=== PATIENT | female | born 1970 | race American Indian/Alaskan Native ===

== ENCOUNTER 2017-05-29 06:04 | Inpatient (IN) | payer OTHER ==
[2017-05-28 09:18] VITALS: BMI 27.4
[2017-05-29] MEDS ORDERED: Lactated Ringer's 1,000 ML IV ONE ×2 (07:00→08:48)
[2017-05-29] MEDS ORDERED: Phenylephrine 10 mg/ml Inj ONE (07:13)
[2017-05-29] MEDS ORDERED: Midazolam 2 MG/2 ML VIAL ONE (07:13)
[2017-05-29] MEDS ORDERED: Rocuronium 10 mg/ml (5 ml) ONE ×2 (07:13→10:07)
[2017-05-29] MEDS ORDERED: Propofol 10 mg/ml Inj (20 ML) ONE (07:13)
[2017-05-29] MEDS ORDERED: Succinylcholine 200 mg/10 ml Inj IV ONE (07:13)
[2017-05-29] MEDS ORDERED: ePHEDrine 50 mg/ml Inj ONE (07:13)
[2017-05-29] MEDS ORDERED: Bupivacaine 0.5% Inj(30mL) ONE (07:39)
[2017-05-29] MEDS ORDERED: Neostigmine Methylsulfate 2 MG/2 ML ML IV ONE (08:16)
[2017-05-29] MEDS ORDERED: Dexamethasone 4 mg/1 ml ONE (08:18)
[2017-05-29] MEDS ORDERED: Sodium Chloride 0.9% 1,000 ML IV ONE (09:41)
[2017-05-29] MEDS ORDERED: HYDROmorphone 0.5 mg/0.5 ml ISec IVP PRN (10:59)
[2017-05-29] MEDS ORDERED: Naloxone 0.4 mg/ml Inj (Adult) IVP PRN (10:59)
[2017-05-29] MEDS ORDERED: Oxycodone/Acetaminophen 5/325 mg Tab PO PRN (12:34)
[2017-05-29] MEDS: cefOXitin Sodium 1 GM in Sodium Chloride 0.9% 100 ML IVPB SCH (16:44)
[2017-05-29] MEDS: Lactated Ringer's 1,000 ML IV SCH (20:25)
[2017-05-29 21:19] VITALS: O2SAT 100
[2017-05-30] MEDS: cefOXitin Sodium 1 GM in Sodium Chloride 0.9% 100 ML IVPB SCH ×2 (00:43→08:35)
[2017-05-30] MEDS: Lactated Ringer's 1,000 ML IV SCH (05:30)
[2017-05-30 06:31] LABS: HEMATOCRIT 27.8 % (34.0-47.0); MEAN CELL VOLUME 90.7 fl (81.0-99.0); MEAN CORPUSCULAR HEMOGLOBIN 28.7 pg (27.0-31.0); MEAN CORPUSCULAR HGB CONC 31.7 g/dL (33.0-37.0); RED CELL DISTRIBUTION WIDTH 14.8 % (11.5-14.5); WHITE BLOOD COUNT 8.4 K/uL (4.8-10.8)
--- NOTE | 2017-05-30 08:30 | CP.SDSHP ---
Same Day Surgery [facility] & P - Allergies Allergies: Allergies ibuprofen Allergy (Intermediate, Verified 02/26/17 09:34) SWELLING Iodine and Iodide Containing Produc Allergy (Intermediate, Verified 02/26/17 09: 34) NAUSEA shellfish derived Allergy (Intermediate, Verified 02/26/17 09:34) SWELLING - Physical Exam Vital Signs: Vital Signs 05/30/17 05/30/17 05/30/17 01:00 05:00 05:56 Temperature 99.1 F 99 F Pulse Rate 87 69 Respiratory 22 22 20 Rate Blood Pressure 102/56 L 113/71 O2 Sat by Pulse 100 100 100 Oximetry Short Stay Discharge - Short Stay Discharge Admitting Diagnosis/Reason for Visit: FIBROID UTERUS S/P ROBOTICHYSTERECTOMY Referrals: Roopa Pacheco MD [Primary Care Provider] - Additional Instructions (Diet, Activity): Patient doing well pain well controlled tolerating diet Vital signs stable afebrile Abdomen soft nontender nondistended Incision clean dry and intact Extremities no Homans Postop day 1 Patient cleared for discharge Prescriptions for Percocet and Colace provided No heavy lifting, nothing per vagina Follow-up with PMD in 1 week
[2017-05-30 11:53] VITALS: BP 112/63; PULSE 75; RESP 18; TEMP 35
--- NOTE | 2017-05-30 19:53 | OP ---
PROCEDURE DATE: 05/29/2017 PREOPERATIVE DIAGNOSES: Symptomatic fibroid uterus, pelvic pressure, pain, and anemia. POSTOPERATIVE DIAGNOSES: Symptomatic fibroid uterus, pelvic pressure, pain, and anemia. OPERATIONS PERFORMED: Robotic-assisted hysterectomy, bilateral salpingectomy, and cystoscopy. SURGEON: Marlyn Linton MD TELECOMMUNICATIONS ENGINEER: Dr. Jaime Wakefield, he was helpful in taking care of the patient. He helped to create exposure, helpful in obtaining hemostasis, helpful in extraction of the specimen. Procedure would not have been possible without his assistance. ANESTHESIA: General. ANESTHESIA ADMINISTERED BY: Dr. Nguyen. ESTIMATED BLOOD LOSS: 100 mL. URINE OUTPUT: Approximately 300 mL of clear urine. IV FLUID INTAKE: The patient received approximately 1700 mL of D5LR intraoperatively. OPERATIVE FINDINGS: An 18-week size uterus, irregular contour, normal ovaries, tubes. CYSTOSCOPY FINDINGS: The dome of the bladder was noted to be intact. There was bilateral efflux of urine from the ureters. DESCRIPTION OF PROCEDURE: After informed consent was obtained, the patient was taken to the operating room, where she was given general anesthesia. A time-out was performed and the patient was then prepped and draped in usual sterile fashion in a lithotomy position. A weighted-speculum was then inserted into the vagina, cervix was visualized and grasped with a single-toothed tenaculum. Cervix was gently dilated and the Vcare uterine manipulator was inserted into the uterine cavity as a means to manipulate the uterus. A Ennis catheter was then inserted into the bladder to monitor the patient's urinary output. Attention was then turned to the abdomen approximately 8 cm above the umbilicus. Marcaine was infused and 8 mm incision was made and the Veress needle was introduced into the abdominal cavity, placement was confirmed with a fluid filled syringe. The abdomen was then insufflated to 15 mmHg. The Veress needle was removed and then an 8 mm trocar was introduced into the abdominal cavity, placement was confirmed with the laparoscope. The abdomen was surveyed with the findings noted above. Attention was then turned to approximately 20 cm right and lateral of the umbilicus. Marcaine was infused and 8 mm incision was made, and 8 mm port was introduced into abdominal cavity under direct visualization. A similar procedure was performed approximately 10 cm right and lateral to the umbilicus. Attention was then turned to the left side where approximately 20 cm left and lateral of the umbilicus and 8 mm Marcaine was infused and 8 mm incision was made and a robotic port was introduced under direct visualization, approximately 10 cm left and lateral to the umbilicus. Marcaine was infused and 5 mm incision was made and interior design assistant ports was introduced to the abdominal cavity under direct visualization. The patient was then placed in steep Trendelenburg, the table was lowered, and the robot was brought along the patient side and docked without complication. The instruments were used for the surgery were PK dissector, Low Suture Cut, scissor, and a ProGrasp. The instruments were then inserted into the abdomen. The robot was docked and proceeded to break scrub and headed to surgical console. Attention was then turned to the left round ligament, where a serially coagulated and then transected with the scissor. The Utero-ovarian ligament was identified, serially coagulated with the PK dissector and then transected with the scissor. Attention was then turned anteriorly where the vesicouterine peritoneum was undermined with the PK dissector and transected down to the level of the Vcare cup anteriorly. Attention was then turned to the posterior aspect of peritoneum was undermined with PK dissector and transected down to the level of the Vcare cup posteriorly. The uterine arteries were then skeletonized on the left side, they were serially coagulated with PK dissector and transected with the scissor. Attention was then turned to the right side of the uterus. The round ligament was identified, serially coagulated and transected with the scissor. Attention was then turned to the Utero-ovarian ligament with similar fashion was serially coagulated and transected with the scissor. The vesicouterine peritoneum was then undermined with the PK carried down to the level of the Vcare cup anteriorly. Vcare cup was then identified. The bladder was gently mobilized downward using both sharp and blunt dissection with scissor and hemostasis was obtained with the PK. Attention was then turned to the posterior aspect of the uterus, where the posterior peritoneum was undermined with the PK dissector down to the level of the Vcare cup posteriorly. The right uterine arteries were then skeletonized and then serially coagulated with the scissor and transected. The Vcare cup was then identified anteriorly, posteriorly and laterally. 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 Due to the size of the uterus, she would not be able to deliver without enucleating that fibroid, so the posterior fibroid was scored with the scissor, it was then grasped with a tenaculum and enucleated using both sharp and blunt dissention. We then turned attention to the anterior portion of the Vcare cup, it was scored with the scissor, and the uterus, cervix, and tubes were then scored and delivered vaginally. The fibroid was then extracted vaginally. The vaginal cuff was closed with 2-0 Vicryl in a running fashion. The abdomen was then irrigated. The irrigant was removed with the suction device. Hemostasis was noted. We were unable to visualized the left ureter due to anatomical variation. The right ureter was clearly visualized. All instruments were then removed from the abdomen and the robot was removed successfully. The skin incisions were closed with Dermabond. Attention was then turned to the ureter where cystoscope was inserted to the bladder. On inspection, the dome of the bladder was noted to be intact. There was bilateral efflux of urine. All instruments were then removed from the abdomen. All sponge, lap, needle, and instrument counts were correct x2. The patient was taken to recovery room in awake and stable condition. Marlyn Linton MD
== END 2017-05-30 13:35 | disposition home or self-care (01) | DRG 743 ==
LOC: H.OPSURG 06:04 → H.PEDS 12:34
PROVIDERS: ADMIT Obstetrics & Gynecology Gynecology; ATTEND Obstetrics & Gynecology Gynecology
PROC: 0UT7FZZ Resection of Bilateral Fallopian Tubes, Via Natural or Artificial Opening With Percutaneous Endoscopic Assistance (ICD-10-PCS; 2017-05-29)
PROC: 8E0W0CZ Robotic Assisted Procedure of Trunk Region, Open Approach (ICD-10-PCS; 2017-05-29)
PROC: 0TJB8ZZ Inspection of Bladder, Via Natural or Artificial Opening Endoscopic (ICD-10-PCS; 2017-05-29)
PROC: 0UT9FZZ Resection of Uterus, Via Natural or Artificial Opening With Percutaneous Endoscopic Assistance (ICD-10-PCS; principal; 2017-05-29 07:45)
DX: D25.9 Leiomyoma of uterus, unspecified (principal); D64.9 Anemia, unspecified; Z91.041 Radiographic dye allergy status; Z91.013 Allergy to seafood